=== PATIENT | female | born 1980 | race Hispanic/Latino ===

== ENCOUNTER 2018-03-31 14:29 | Emergency (ER) | payer OTHER ==
--- NOTE | 2018-03-31 16:04 | EDPHYS ---
Physician Documentation [facility] Name: Yris Mg Age: 37 yrs Sex: Female : 1980 Arrival Date: 03/31/2018 Time: 14:45 Bed DIS2 Private MD: out of town, doctor ED Physician Stevie Guevara HPI: 03/31 15:12 This 37 yrs old Female presents to ER via Ambulatory with complaints of Sore cp Throat. 15:12 The patient presents with sore throat. The patient describes throat pain as burning. cp Onset: The symptoms/episode began/occurred 2 day(s) ago. Severity of symptoms: in the emergency department the symptoms are unchanged, despite home interventions. Modifying factors: the symptoms are aggravated by swallowing. Associated signs and symptoms: Pertinent positives: cough, Pertinent negatives diarrhea, dysphagia, earache, fever, headache, rhinorrhea. DES[employer]: 14:53 LMP 02/20/2018 aj Historical: - Allergies: 14:53 No Known Allergies; aj - Home Meds: 14:53 None [Active]; aj - PMHx: 14:53 None; aj - PSHx: 14:53 None; aj - Immunization history:: Adult Immunizations up to date. - Social history:: Smoking status: Patient/guardian denies using tobacco. - Ebola Screening: : Patient negative for fever greater than or equal to 101.5 degrees Fahrenheit, and additional compatible Ebola Virus Disease symptoms Patient denies exposure to infectious person Patient denies travel to an Ebola-affected area in the 21 days before illness onset No symptoms or risks identified at this time. ROS: 15:25 Constitutional: Negative for body aches, chills, fever, poor PO intake. cp 15:25 Eyes: Negative for injury, pain, redness, and discharge. cp 15:25 ENT: Positive for sore throat, Negative for drainage from ear(s), ear pain, difficulty swallowing, difficulty handling secretions, hoarseness. 15:25 Neck: Negative for stiffness, swollen nodes, tenderness. 15:25 Cardiovascular: Negative for chest pain, edema, palpitations. 15:25 Respiratory: Positive for slight cough, Negative for shortness of breath, wheezing. 15:25 Abdomen/GI: Negative for abdominal pain, nausea, vomiting, and diarrhea, constipation. 15:25 Back: Negative for pain at rest, pain with movement, radiated pain. 15:25 : Negative for urinary symptoms. 15:25 Skin: Negative for cellulitis, rash. 15:25 Neuro: Negative for dizziness, headache, weakness. 15:25 All other systems are negative. Exam: 15:30 Head/Face: Normocephalic, atraumatic. cp 15:30 Constitutional: The patient appears in no acute distress, alert, awake, non-toxic, well developed, well nourished. 15:30 Eyes: Periorbital structures: appear normal, Pupils: equal, round, and reactive to light and accomodation, Extraocular movements: intact throughout, Conjunctiva: normal, no exudate, no injection, Sclera: no appreciated abnormality, Lids and lashes: appear normal, bilaterally. 15:30 ENT: External ear(s): are unremarkable, Ear canal(s): are normal, clear, TM's: bulging, is not appreciated, bilaterally, dullness, bilaterally, erythema, is not appreciated, bilaterally, Nose: is normal, Mouth: Lips: moist, Oral mucosa: moist, Posterior pharynx: Airway: no evidence of obstruction, patent, Tonsils: no enlargement, no exudate, Uvula: midline, non-edematous, swelling, is not appreciated, erythema, that is mild, exudate, is not appreciated, Voice: is normal. 15:30 Neck: ROM/movement: is normal, is supple, without pain, no range of motions limitations, no meningismus, no nuchal rigidity, Lymph nodes: no appreciated lymphadenopathy. 15:30 Chest/axilla: Inspection: normal, Palpation: is normal, no crepitus, no tenderness. 15:30 Cardiovascular: Rate: normal, Rhythm: regular. 15:30 Respiratory: the patient does not display signs of respiratory distress, Respirations: normal, no use of accessory muscles, no retractions, no splinting, no tachypnea, labored breathing, is not present, Breath sounds: are clear throughout, no decreased breath sounds, no stridor, no wheezing. 15:30 Abdomen/GI: Exam negative for discomfort, distension, guarding, Inspection: abdomen appears normal. 15:30 Skin: cellulitis, is not appreciated, no rash present. 15:30 Back: pain, is absent, ROM is normal. cp Vital Signs: 14:53 BP 115 / 78; Pulse 98; Resp 16; Temp 98.6; Pulse Ox 97% on R/A; Weight 89.81 kg; Height aj 5 ft. 2 in. (157.48 cm); 14:53 Body Mass Index 36.21 (89.81 kg, 157.48 cm) MDM: 15:09 Patient medically screened. 16:03 Data reviewed: vital signs, nurses notes, lab test result(s). 16:03 Counseling: I had a detailed discussion with the patient and/or guardian regarding: the historical points, exam findings, and any diagnostic results supporting the discharge/admit diagnosis, lab results, to return to the emergency department if symptoms worsen or persist or if there are any questions or concerns that arise at home. 03/31 15:11 Order name: Strep; Complete Time: 16:03 03/31 16:03 Interpretation: Reviewed. 03/31 15:59 Order name: Throat Culture EDMS Administered Medications: No medications were administered Disposition: 03/31/18 16:04 Discharged to Home. Impression: Acute pharyngitis. - Condition is Stable. - Discharge Instructions: Pharyngitis. - Medication Reconciliation Form, Thank You Letter, Antibiotic Education, Prescription Opioid Use form. - Follow up: Private Physician; When: 2 - 3 days; Reason: Recheck today's complaints. - Problem is new. - Symptoms are unchanged. Addendum: 04/02/2018 07:04 Co-signature as Attending Physician, Stevie Guevara MD I agree with the assessment and k dr plan of care. Signatures: Dispatcher [employer] EDDC Annie Forte RN RN aj Rittger, Kevin, MD MD [facility] Dileep Amaya PA PA Mel Taylor RN RN rk2 Corrections: (The following items were deleted from the chart) 03/31 16:15 16:04 03/31/2018 16:04 Discharged to Home. Impression: Acute pharyngitis. Condition is rk2 Stable. Forms are Medication Reconciliation Form, Thank You Letter, Antibiotic Education, Prescription Opioid Use. Follow up: Private Physician; When: 2 - 3 days; Reason: Recheck today's complaints. Problem is new. Symptoms are unchanged. cp
--- NOTE | 2018-03-31 16:04 | ER ---
Nurse's Notes [facility] Name: Yris Mg Age: 37 yrs Sex: Female : 1980 Arrival Date: 03/31/2018 Time: 14:45 Bed DIS2 Private MD: out of town, doctor Diagnosis: Acute pharyngitis Presentation: 03/31 14:53 Presenting complaint: Mother states: Sore throat for 2 days. Transition of care: aj patient was not received from another setting of care. Onset of symptoms was March 29, 2018. Risk Assessment: Do you want to hurt yourself or someone else? Patient reports no desire to harm self or others. Care prior to arrival: None. 14:53 Method Of Arrival: Ambulatory 14:53 Acuity: FRITZ 4 15:30 Initial Sepsis Screen: Does the patient meet any 2 criteria? No. Patient's initial rk2 sepsis screen is negative. Does the patient have a suspected source of infection? No. Patient's initial sepsis screen is negative. Triage Assessment: 14:53 General: Appears in no apparent distress. comfortable, Behavior is calm, cooperative, aj appropriate for age. Pain: Denies pain. EENT: Reports pain when swallowing. Respiratory: Parent/caregiver reports the patient having cough that is productive. Derm: Skin is intact, is healthy with good turgor, Skin is pink, warm \T\ dry. normal. CORPORATE SCHEDULER: 14:53 LMP 02/20/2018 Historical: - Allergies: 14:53 No Known Allergies; aj - Home Meds: 14:53 None [Active]; aj - PMHx: 14:53 None; aj - PSHx: 14:53 None; aj - Immunization history:: Adult Immunizations up to date. - Social history:: Smoking status: Patient/guardian denies using tobacco. - Ebola Screening: : Patient negative for fever greater than or equal to 101.5 degrees Fahrenheit, and additional compatible Ebola Virus Disease symptoms Patient denies exposure to infectious person Patient denies travel to an Ebola-affected area in the 21 days before illness onset No symptoms or risks identified at this time. Screenin:34 Abuse screen: Denies threats or abuse. Nutritional screening: No deficits noted. rk2 Tuberculosis screening: No symptoms or risk factors identified. Fall Risk None identified. Assessment: 15:35 General: Appears in no apparent distress. well developed, well nourished, Behavior is rk2 calm, cooperative. Neuro: Level of Consciousness is alert, obeys commands, Oriented to person, place, time, situation. Respiratory: Airway is patent Respiratory effort is even, unlabored, Respiratory pattern is regular, symmetrical, Breath sounds are clear. EENT: Throat is reddened. Derm: Skin is pink, warm \T\ dry. Vital Signs: 14:53 BP 115 / 78; Pulse 98; Resp 16; Temp 98.6; Pulse Ox 97% on R/A; Weight 89.81 kg; Height aj 5 ft. 2 in. (157.48 cm); 14:53 Body Mass Index 36.21 (89.81 kg, 157.48 cm) ED Course: 14:45 Patient arrived in ED. mr 14:45 out of town, doctor is Private Physician. mr 14:53 Triage completed. aj 14:53 Arm band placed on left wrist. Patient placed in an exam room. aj 15:01 Mel Taylor RN is Primary Nurse. rk2 15:04 Dileep Amaya PA is PHCP. cp 15:04 Stevie Guevara MD is Attending Physician. cp 15:34 Patient has correct armband on for positive identification. Bed in low position. Call rk2 light in reach. 16:14 No provider procedures requiring assistance completed. Patient did not have IV access rk2 during this emergency room visit. Administered Medications: No medications were administered Outcome: 16:04 Discharge ordered by MD. cp 16:14 Discharged to home ambulatory. rk2 16:14 Condition: good 16:14 Discharge instructions given to patient. 16:15 Patient left the ED. rk2 Signatures: Annie Forte, RN RN Diamond Howell mr Dileep Amaya PA PA cp Mel Taylor, SEAMUS RN rk2
== END 2018-03-31 16:15 | disposition home or self-care (01) ==
LOC: ER 14:29
DX: J02.9 Acute pharyngitis, unspecified (principal)
CPT/HCPCS: 87070; 87081; 99281